=== PATIENT | male | born 1965 | race African-American/Black ===

== ENCOUNTER 2019-10-02 18:28 | Emergency (ER) | payer MEDICAID ==
[~2019-10-02] VITALS: Ht 180.3 cm; Wt 59.1 kg
[2019-10-02] MEDS ORDERED: cloNIDine 0.1 mg tablet PO ONE (18:40)
--- NOTE | 2019-10-02 18:46 | NUR ---
pt refused to take medication he has rapid speeech that makes no sense , he refused to drink water he refuses to let anyone touch him he gets load and hostile when trying to assess . pt states tajh all medication gives psychological issues to his brain "
--- NOTE | 2019-10-02 19:00 | NUR ---
ATTEMPTED TO GIVE PT HIS CLONDINE AGAIN PT REFUSED AND STATED HE WILL NOT TAKE ANYTHING <
[2019-10-02] MEDS ORDERED: cloNIDine 0.1 MG/24 HOUR patch (7 day patch) TD ONE (19:15)
[2019-10-02 19:41] VITALS: BP 172/103
== END 2019-10-02 19:43 ==
LOC: ER 18:30
DX: I10 Essential (primary) hypertension (principal); Z02.89 Encounter for other administrative examinations
CPT/HCPCS: 93005; 99283